=== PATIENT | male | born 1970 ===

== ENCOUNTER 2020-02-28 09:45 | Inpatient (IN) | payer OTHER ==
[~2020-02-28] VITALS: Ht 162.6 cm; Wt 88.0 kg
[2020-02-28] MEDS ORDERED: PROTO PO (10:12)
[2020-03-06] MEDS ORDERED: PROTONIX20 MG (16:40)
[2020-03-08] MEDS ORDERED: PERCOCET 5-3251 EACH PO (08:54)
== END 2020-03-08 13:36 | disposition home or self-care (01) | DRG 331 ==
LOC: O/R 03-06 06:00 → SURG 03-06 06:00 → SURH 03-06 07:00 → SURG 03-06 11:36
PROVIDERS: ADMIT Surgery; ATTEND Surgery
PROC: 0DJD8ZZ Inspection of Lower Intestinal Tract, Via Natural or Artificial Opening Endoscopic (ICD-10-PCS; 2020-03-06)
PROC: 0DTN4ZZ Resection of Sigmoid Colon, Percutaneous Endoscopic Approach (ICD-10-PCS; principal; 2020-03-06 07:00)
DX: K57.32 Diverticulitis of large intestine without perforation or abscess without bleeding (principal); Z20.828 Contact with and (suspected) exposure to other viral communicable diseases

== ENCOUNTER 2021-04-08 09:02 | Day surgery (SDC) | payer OTHER ==
[~2021-04-08 09:02] MED LIST: PERCOCET 5-3251 EACH PO; PROTO PO; PROTONIX20 MG
== END 2021-04-08 13:30 | disposition home or self-care (01) ==
LOC: AMB-ENDOS 09:02
PROVIDERS: ATTEND Surgery
DX: K57.32 Diverticulitis of large intestine without perforation or abscess without bleeding (principal); Z20.822 Contact with and (suspected) exposure to COVID-19